=== PATIENT | female | born 1965 | race African-American/Black ===

== ENCOUNTER 2021-04-19 10:41 | Emergency (ER) | payer BC ==
[~2021-04-19] VITALS: Ht 165.1 cm; Wt 72.7 kg
[2021-04-19] MEDS ORDERED: ONDANSETRON PF 4 MG/2 ML VIAL. IVP ONE (11:00)
[2021-04-19 11:13] LABS: BASO % 1 % (0-3); CREATININE 0.9 mg/dL (0.6-1.0); EOS # 0.1 x10^3/uL (0.0-0.7); EOS % 2 % (0-3); GFR 78.4; HEMATOCRIT 41.9 % (36.0-47.0); HEMOGLOBIN 14.3 g/dL (12.0-15.5); LYMPH # 1.1 x10^3/uL (1.0-4.8); LYMPH % 22 % (24-48); MEAN CORPUSCULAR HEMOGLOBIN 32 pg (25-35); MEAN CORPUSCULAR HGB CONC 34 g/dL (31-37); MEAN CORPUSCULAR VOLUME 94 fL (79-100); MONO # 0.6 x10^3/uL (0.0-1.1); MONO % 12 % (0-9); NEUT # 3.2 x10^3/uL (1.8-7.7); NEUT % 64 % (31-73); PLATELET COUNT 178 x10^3/uL (140-400); POTASSIUM 4.2 mmol/L (3.5-5.1); RED BLOOD COUNT 4.45 x10^6/uL (3.50-5.40)
--- NOTE | 2021-04-19 11:21 | PHYS DOC ---
Past Medical History Past Medical History: Seizure Additional Past Surgical Histo: Mitral valve replacement General Adult EDM: Chief Complaint: SEIZURE HPI: HPI: Patient is a 55 year old female with history of seizure, mitral valve replacement on warfarin who presents with multiple seizures. Patient states that she has had a 3-day history of progressive headache. Has tried Fioricet but it has not improved. Was going to get her haircut today when she had the seizure in the chair. She was planning on continuing to get her haircut when she had multiple recurrent seizures. States her last seizure was a couple weeks ago. Has had a recent dose adjustment to her Keppra. Follows closely with a neurologist. Denies any recent head trauma. Denies any fevers or chills. She did get her flu shot and COVID booster yesterday. Review of Systems: Review of Systems: Constitutional: Denies fever or chills. [] Eyes: Denies change in visual acuity. [] HENT: Denies nasal congestion or sore throat. [] Respiratory: Denies cough or shortness of breath. [] Cardiovascular: Denies chest pain or edema. [] GI: Denies abdominal pain, nausea, vomiting, bloody stools or diarrhea. [] : Denies dysuria. [] Musculoskeletal: Denies back pain or joint pain. [] Integument: Denies rash. [] Neurologic: Reports headache and seizure. Denies focal weakness or sensory changes. [] Endocrine: Denies polyuria or polydipsia. [] Lymphatic: Denies swollen glands. [] Psychiatric: Denies depression or anxiety. [] Heart Score: C/O Chest Pain: N/A Risk Factors: Risk Factors: DM, Current or recent (<one month) smoker, HTN, HLP, family history of CAD, obesity. Risk Scores: Score 0 - 3: 2.5% MACE over next 6 weeks - Discharge Home Score 4 - 6: 20.3% MACE over next 6 weeks - Admit for Clinical Observation Score 7 - 10: 72.7% MACE over next 6 weeks - Early Invasive Strategies Current Medications: Current Medications Medications (Trade) Dose Ordered Sig/Bruno Start Time Stop Time Status Last Admin Dose Admin Lorazepam (Ativan Inj) 1 mg 1X ONCE 04/19/21 11:00 04/19/21 11:03 DC 04/19/21 11:04 1 MG Ondansetron HCl (Zofran) 4 mg 1X ONCE 04/19/21 11:00 04/19/21 11:03 DC 04/19/21 11:04 4 MG Allergies: Allergies: Allergies Coded Allergies Type Severity Reaction Last Updated Verified No Known Drug Allergies 04/19/21 No Physical Exam: PE: Constitutional: Appears fatigued, no apparent distress. HENT: Normocephalic, atraumatic, Eyes: PERRLA, EOMI, conjunctiva normal, no discharge. [] Neck: Normal range of motion, no tenderness, supple, no stridor. [] Cardiovascular:Heart rate regular rhythm, no murmur [] Lungs & Thorax: Bilateral breath sounds clear to auscultation [] Abdomen: Bowel sounds normal, soft, no tenderness, no masses, no pulsatile masses. [] Skin: Warm, dry, no erythema, no rash. [] Back: No tenderness, no CVA tenderness. [] Extremities: No tenderness, no cyanosis, no clubbing, ROM intact, no edema. [] Neurologic: Alert and oriented X 3, slow to respond. Speech slow and stuttering. normal sensory function, no focal deficits noted. [] Psychologic: Affect normal, judgement normal, mood normal. [] Current Patient Data: Labs: Laboratory Tests Test 04/19/21 10:47 Glucose (Fingerstick) 122 mg/dL (70-99) H Vital Signs: Vital Signs Date Time Temp Pulse Resp B/P (MAP) Pulse Ox O2 Delivery O2 Flow Rate FiO2 04/19/21 11:08 98.0 76 16 155/73 (100) 98 Room Air 98.0 EKG: EKG: [] Radiology/Procedures: Radiology/Procedures: [] Impression: [facility] [address] [place], [place] [id number] IMAGING REPORT Signed PATIENT: BRADEN HARE ACCOUNT: [id number] : 1965 LOCATION: ER AGE: 55 SEX: F EXAM STATUS: REG ER ORD. PHYSICIAN: AYANA LEON MD REASON: ABBOTT, on warfarin, seizure PROCEDURE: CT HEAD WO CONTRAST CT brain without contrast. HISTORY: Headache, patient on warfarin, seizure CT scan the brain was done without contrast. Sinuses are clear. A skull fracture is not identified. Mastoids are normally aerated. There is no intracranial hemorrhage or subdural hematoma. There is no mass effect or shift of the midline. Ventricles are normal in size. An acute CVA is not identified. IMPRESSION: 1. No intracranial hemorrhage or acute finding noted. PQRS Compliance Statement: One or more of the following individualized dose reduction techniques were utilized for this examination: 1. Automated exposure control 2. Adjustment of the mA and/or kV according to patient size 3. Use of iterative reconstruction technique Electronically signed by: Kentrell Chance MD (04/19/2021 11:41 AM) [facility] DICTATED and SIGNED BY: KENTRELL CHANCE MD DATE: 04/19/21 [id number] 0 Course & Med Decision Making: Course & Med Decision Making Pertinent Labs and Imaging studies reviewed. (See chart for details) Patient 55-year-old female with a history of seizure disorder on Keppra and mitral valve replacement on warfarin who presents with multiple seizures today. Does endorse a preceding headache the past 3 days. On arrival she appears postictal, and has slow stuttering speech, but appears to be alert and oriented. Reportedly had a 10-second seizure just after arrival, that was not witnessed by myself. Glucose 122. We will establish IV access and treat with Ativan to try to prevent further seizures. Will check Keppra level, metabolic panel, INR, CT of the head. Concern for potential ICH with recent headache, warfarin use. She does not describe a thunderclap headache, so I feel SAH is less likely. 1121 CT head reassuring. Patient has had no further seizures after several hours of monitoring. She is at her baseline neurologically. CBC, BMP noncontributory. Keppra level pending. INR slightly subtherapeutic at 2.1 (goal 2.53.5) Patient feeling better after Compazine and Benadryl for headache. She is requesting discharge home and feels comfortable with that plan. She will call her neurologist in Wednesday morning to schedule follow-up. [address] Disclaimer: Drag[place] Disclaimer: This electronic medical record was generated, in whole or in part, using a voice recognition dictation system. Departure Departure Impression: Primary Impression: Seizure Disposition: HOME / SELF CARE / HOMELESS Condition: STABLE Referrals: HELDER VILLATORO (PCP) Additional Instructions: Please call your neurologist on Wednesday to schedule follow-up appointment and to let them know you are seen in the emergency department. We did send a Keppra level, that may be helpful for them to follow-up. Your INR was slightly subtherapeutic at 2.1. Please call your PCP or stagecraft teacher (whoever manages her warfarin) to discuss this and discuss dose changes. The CT scan of your head was normal. Your labs were otherwise reassuring. Please rest over the next few days, ensure that you get good sleep. Return to the emergency department for recurrent seizures, fever, neck pain, numbness/weakness, speech difficulty, or other new/concerning symptoms. AYANA LEON MD Apr 19, 2021 11:21
--- NOTE | 2021-04-19 11:43 | RAD ---
CT brain without contrast. HISTORY: Headache, patient on warfarin, seizure CT scan the brain was done without contrast. Sinuses are clear. A skull fracture is not identified. M astoids are normally aerated. There is no intracranial hemorrhage or subdural hematoma. There is no m ass effect or shift of the midline. Ventricles are normal in size. An acute CVA is not identified. IMPRESSION: 1. No intracranial hemorrhage or acute finding noted. PQRS Compliance Statement: One or more of the following individualized dose reduction techniques were utilized for this examinat ion: 1. Automated exposure control 2. Adjustment of the mA and/or kV according to patient size 3. Use of iterative reconstruction technique Electronically signed by: Kentrell Chance MD (04/19/2021 11:41 AM) [facility]
[2021-04-19 12:11] LABS: PROTHROMBIN TIME PATIENT 23.6 SEC (11.7-14.0)
[2021-04-19] MEDS ORDERED: diphenhydrAMINE 50 MG/ML VIAL IVP ONE (12:45)
[2021-04-19] MEDS ORDERED: PROCHLORPERAZINE 10 MG/2 ML VIAL. IV ONE (12:45)
[2021-04-19 14:12] VITALS: BP 141/73
== END 2021-04-19 14:40 | disposition home or self-care (01) ==
LOC: ER 10:41
DX: R56.9 Unspecified convulsions (principal); R51.9 Headache, unspecified
CPT/HCPCS: 36415; 70450; 80048; 80177; 82962; 85025; 85610; 96374; 96375; 99285; J0780; J1200; J2060; J2405